=== PATIENT | male | born 1950 | race Caucasian/White ===

== ENCOUNTER → 2017-07-14 | Outpatient (CLI) | payer MEDICARE | END | disposition home or self-care (01) | LOC: WOUND 09:58 | PROVIDERS: ATTEND Internal Medicine | DX: L02.416 Cutaneous abscess of left lower limb (principal) | CPT/HCPCS: 97597; G0463; WOU0463 ==

== ENCOUNTER → 2017-07-16 | Outpatient (CLI) | payer MEDICARE | END | disposition home or self-care (01) | LOC: WOUND 08:19 | PROVIDERS: ATTEND Internal Medicine | DX: L02.416 Cutaneous abscess of left lower limb (principal) | CPT/HCPCS: G0463; WOU0463 ==

== ENCOUNTER → 2017-07-18 | Outpatient (CLI) | payer MEDICARE | END | disposition home or self-care (01) | LOC: WOUND 09:30 | PROVIDERS: ATTEND Family Medicine | DX: L02.416 Cutaneous abscess of left lower limb (principal) | CPT/HCPCS: G0463; WOU0463 ==

== ENCOUNTER → 2017-07-21 | Outpatient (CLI) | payer MEDICARE | END | disposition home or self-care (01) | LOC: WOUND 08:52 | PROVIDERS: ATTEND Family Medicine | DX: L02.416 Cutaneous abscess of left lower limb (principal) | CPT/HCPCS: 97597 ==

== ENCOUNTER → 2017-07-23 | Outpatient (CLI) | payer MEDICARE | END | disposition home or self-care (01) | LOC: WOUND 08:34 | PROVIDERS: ATTEND Internal Medicine | DX: L02.416 Cutaneous abscess of left lower limb (principal) | CPT/HCPCS: G0463; WOU0463 ==

== ENCOUNTER → 2017-07-25 | Outpatient (CLI) | payer MEDICARE | END | disposition home or self-care (01) | LOC: WOUND 09:45 | PROVIDERS: ATTEND Family Medicine | DX: L02.416 Cutaneous abscess of left lower limb (principal) | CPT/HCPCS: G0463; WOU0463 ==

== ENCOUNTER → 2017-07-28 | Outpatient (CLI) | payer MEDICARE | END | disposition home or self-care (01) | LOC: WOUND 09:37 | PROVIDERS: ATTEND Internal Medicine | DX: L02.416 Cutaneous abscess of left lower limb (principal) | CPT/HCPCS: 97597 ==